=== PATIENT | female | born 1985 | race Two or more races ===

== ENCOUNTER 2019-11-04 12:52 | Emergency (ER) | payer BC ==
--- NOTE | 2019-11-04 13:42 | EDM.PDOC ---
ED HPI GENERAL MEDICAL PROBLEM - General Chief Complaint: Skin Complaint Stated Complaint: CYST UNDER RIGTH BREAST Time Seen by Provider: 11/04/19 12:57 Source of Information: Reports: Patient History Limitations: Reports: No Limitations Departure - Discharge Information Referrals: PCP,None [Primary Care Provider] -
== END 2019-11-04 13:39 | disposition left against medical advice (07) ==
LOC: MW.ED 12:52 → MERGE 12:52 → MW.ED 13:39
DX: Z53.21 Procedure and treatment not carried out due to patient leaving prior to being seen by health care provider (principal)

== ENCOUNTER 2020-10-01 22:02 | Emergency (ER) | payer BC ==
[2020-10-01] MEDS ORDERED: Lactated Ringers 1,000 ML IV ONE (23:08)
[2020-10-01] MEDS ORDERED: Lactated Ringers 1,000 ML IV SCH (23:15)
[2020-10-01 23:21] LABS: ACETAMINOPHEN <2.0 ug/mL; BLOOD UREA NITROGEN,BUN 16 mg/dL (7.0-18.0); CARBON DIOXIDE,CO2 28.5 mmol/L (21.0-32.0); CHLORIDE,CL 101 mmol/L (98-107); GLUCOSE RANDOM 290 mg/dL (74-106); POTASSIUM,K 3.4 mmol/L (3.5-5.1); SODIUM,NA 139 mmol/L (136-145)
--- NOTE | 2020-10-02 01:10 | EDM.PDOC ---
ED HPI GENERAL MEDICAL PROBLEM - General Chief Complaint: Drug or Alcohol Abuse Stated Complaint: POSSIBLE OVERDOSE ON D8 GUMMIES Time Seen by Provider: 10/01/20 22:36 - History of Present Illness INITIAL COMMENTS - FREE TEXT/NARRATIVE: HISTORY AND PHYSICAL: History of present illness: This is a 34-year-old female who presents ER today secondary to ingesting 10 flashers that have 25 mg of delta a THC in them each for a total of 250 mg of delta 8 THC. Patient presents ER today secondary to feeling intoxicated. Patient denies any recent fevers, shakes, chills, nausea, vomiting, diarrhea, dysuria, frequency, urgency, chest pain or shortness of breath no abdominal pain. Patient reports he is tolerating p.o. solids and liquids well. Patient has any homicidal or suicidal ideation. Patient reports that she purchased it secondary to assistance with anxiety. Review of systems: As per history of present illness and below otherwise all systems reviewed and negative. Past medical history: As per history of present illness and as reviewed below otherwise noncontributory. Surgical history: As per history of present illness and as reviewed below otherwise noncontributory. Social history: No reported history of drug abuse. Family history: As per history of present illness and as reviewed below otherwise noncontributory. Physical exam: This patient was seen and evaluated during the 2019 SARS-CoV-2 novel coronavirus pandemic period. Community viral transmission is ongoing at time of this encounter and the emergency department is operating under pandemic response procedures. Constitutional: Patient is oriented to person, place, and time. Appears well- developed and well-nourished. No distress. HEENT: Moist mucous membranes Head: Normocephalic and atraumatic Eyes: Right eye exhibits no discharge. Left eye exhibits no discharge. No scleral icterus Neck: Normal range of motion. No tracheal deviation present. Cardiovascular: Normal rate and regular rhythm. Pulmonary: Effort normal, no respiratory distress. Abdominal: No distention Musculoskeletal: Normal range of motion Neurologic: Alert and oriented to person, place and time. Skin: [place], warm and dry. Psychiatric: Normal mood and affect. Behavior is normal. Judgment and thought content normal. Nursing note and vital signs have been reviewed Patient was reevaluated at 1 AM and she is alert awake and orient x3 and is re questing to be discharged home with her . Diagnostics: Normal CBC, CMP, solicitous, acetaminophen Therapeutics: [] Assessment and plan: Nontoxic ingestion of to delta 8 THC 250 mg. Patient currently is alert awake and orient x3. Patient will be discharged home with instructions not to take 10 delta 8 ever again. Patient is ambulating in the ED with stable gait. Patient's labs are all within normal limits. Definitive disposition and diagnosis as appropriate pending reevaluation and review of above. - Related Data Allergies Allergy/AdvReac Type Severity Reaction Status Date / Time No Known Allergies Allergy Verified 10/01/20 22:14 Home Meds: Home Meds . [No Known Home Meds] 10/01/20 [History] Past Medical History HEENT History: Reports: None Cardiovascular History: Reports: None Respiratory History: Reports: None Gastrointestinal History: Reports: None Genitourinary History: Reports: None LEASING SPECIALIST History: Reports: Dysfunctional Uterine Bleeding Musculoskeletal History: Reports: None Neurological History: Reports: None Psychiatric History: Reports: None Endocrine/Metabolic History: Reports: None Insulin Pump Model and Bag Maker: None Hematologic History: Reports: None Immunologic History: Reports: None Oncologic (Cancer) History: Reports: None Dermatologic History: Reports: None - Infectious Disease History Infectious Disease History: Reports: None - Past Surgical History HEENT Surgical History: Reports: None Social & Family History - Recreational Drug Use Recreational Drug Use: No ED ROS GENERAL - Review of Systems Review Of Systems: See Below ED EXAM, GENERAL - Physical Exam Exam: See Below Course - Vital Signs Last Recorded V/S: Last Vital Signs Temp 96.2 F L 10/01/20 22:05 Pulse 68 10/02/20 00:02 Resp 19 10/02/20 00:02 BP 96/41 L 10/02/20 00:02 Pulse Ox 95 10/02/20 00:02 - Orders/Labs/Meds Orders: Active Orders 24 hr Category Date Time Status ACETAMINOPHEN [CHEM] Stat Lab 10/01/20 22:25 Ordered CBC WITH AUTO DIFF [HEME] Stat Lab 10/01/20 22:25 Ordered COMPREHENSIVE METABOLIC PN,CMP [CHEM] Stat Lab 10/01/20 22:25 Ordered DRUG SCREEN, URINE [URCHEM] Stat Lab 10/01/20 22:25 Ordered ETHANOL BLOOD MEDICAL [CHEM] Stat Lab 10/01/20 22:25 Ordered MAGNESIUM [CHEM] Stat Lab 10/01/20 22:25 Ordered SALICYLATE [CHEM] Stat Lab 10/01/20 22:25 Ordered UA W/MICROSCOPIC [URIN] Stat Lab 10/01/20 22:25 Ordered Lactated Ringers [Ringers, Lactated] 1,000 ml Med 10/01/20 23:08 Ordered IV .BOLUS Lactated Ringers [Ringers, Lactated] 1,000 ml Med 10/01/20 23:15 Ordered IV .BOLUS Labs: Laboratory Tests 10/01/20 10/01/20 10/02/20 Range/Units 10:53 10:53 00:25 WBC 9.21 (4.0-11.0) K/uL RBC 4.29 L (4.30-5.90) M/uL Hgb 13.0 (12.0-16.0) g/dL Hct 36.3 (36.0-46.0) % MCV 84.6 (80.0-98.0) fL MCH 30.3 (27.0-32.0) pg MCHC 35.8 (31.0-37.0) g/dL RDW Std Deviation 40.9 (28.0-62.0) fl RDW Coeff of Shavonne 14 (11.0-15.0) % Plt Count 193 (150-400) K/uL MPV 10.60 (7.40-12.00) fL Neut % (Auto) 51.7 (48.0-80.0) % Lymph % (Auto) 42.0 H (16.0-40.0) % [place] % (Auto) 4.6 (0.0-15.0) % Eos % (Auto) 1.5 (0.0-7.0) % Baso % (Auto) 0.2 (0.0-1.5) % Neut # (Auto) 4.8 (1.4-5.7) K/uL Lymph # (Auto) 3.9 H (0.6-2.4) K/uL [place] # (Auto) 0.4 (0.0-0.8) K/uL Eos # (Auto) 0.1 (0.0-0.7) K/uL Baso # (Auto) 0.0 (0.0-0.1) K/uL Nucleated RBC % 0.0 /100WBC Nucleated RBCs # 0 K/uL Sodium 139 (136-145) mmol/L Potassium 3.4 L (3.5-5.1) mmol/L Chloride 101 (98-107) mmol/L Carbon Dioxide 28.5 (21.0-32.0) mmol/L BUN 16 (7.0-18.0) mg/dL Creatinine 0.8 (0.6-1.0) mg/dL Est Cr Clr Drug Dosing TNP Estimated GFR (MDRD) > 60.0 ml/min Glucose 290 H (74-106) mg/dL Calcium 8.4 L (8.5-10.1) mg/dL Magnesium 1.9 (1.8-2.4) mg/dL Total Bilirubin 0.8 (0.2-1.0) mg/dL AST 30 (15-37) IU/L ALT 59 (14-63) IU/L Alkaline Phosphatase 86 (46-116) U/L Total Protein 6.7 (6.4-8.2) g/dL Albumin 3.6 (3.4-5.0) g/dL Globulin 3.1 (2.6-4.0) g/dL Albumin/Globulin Ratio 1.2 (0.9-1.6) Urine Color YELLOW Urine Appearance SLT CLOUDY Urine pH 5.5 (5.0-8.0) Ur Specific [place] >= 1.030 (1.001-1.035) Urine Protein TRACE H (NEGATIVE) mg/dL Urine Glucose (UA) NEGATIVE (NEGATIVE) mg/dL Urine Ketones NEGATIVE (NEGATIVE) mg/dL Urine Occult Blood NEGATIVE (NEGATIVE) Urine Nitrite NEGATIVE (NEGATIVE) Urine Bilirubin SMALL H (NEGATIVE) Urine Ictotest NEGATIVE Urine Urobilinogen 0.2 (<2.0) EU/dL Ur Leukocyte Esterase NEGATIVE (NEGATIVE) U Hyaline Cast (Auto) FEW (0-2/LPF) Urine RBC 0-2 (0-2/HPF) Urine WBC 0-2 (0-5/HPF) Ur Epithelial Cells MODERATE (NONE-FEW) Calcium Oxalate Crystal MODERATE (NEGATIVE) Urine Bacteria FEW (NEGATIVE) Salicylates 1.7 (0-20) mg/dL Urine Opiates Screen (NEGATIVE) Ur Oxycodone Screen (NEGATIVE) Urine Methadone Screen (NEGATIVE) Acetaminophen <2.0 ug/mL Ur Barbiturates Screen (NEGATIVE) Ur Phencyclidine Scrn (NEGATIVE) Ur Amphetamine Screen (NEGATIVE) U Methamphetamines Scrn (NEGATIVE) U Benzodiazepines Scrn (NEGATIVE) U Cocaine Metab Screen (NEGATIVE) U Marijuana (THC) Screen (NEGATIVE) Ethyl Alcohol < 3.0 mg/dL 10/02/20 Range/Units 00:25 WBC (4.0-11.0) K/uL RBC (4.30-5.90) M/uL Hgb (12.0-16.0) g/dL Hct (36.0-46.0) % MCV (80.0-98.0) fL MCH (27.0-32.0) pg MCHC (31.0-37.0) g/dL RDW Std Deviation (28.0-62.0) fl RDW Coeff of [place] (11.0-15.0) % Plt Count (150-400) K/uL MPV (7.40-12.00) fL Neut % (Auto) (48.0-80.0) % Lymph % (Auto) (16.0-40.0) % [place] % (Auto) (0.0-15.0) % Eos % (Auto) (0.0-7.0) % Baso % (Auto) (0.0-1.5) % Neut # (Auto) (1.4-5.7) K/uL Lymph # (Auto) (0.6-2.4) K/uL [place] # (Auto) (0.0-0.8) K/uL Eos # (Auto) (0.0-0.7) K/uL Baso # (Auto) (0.0-0.1) K/uL Nucleated RBC % /100WBC Nucleated RBCs # K/uL Sodium (136-145) mmol/L Potassium (3.5-5.1) mmol/L Chloride (98-107) mmol/L Carbon Dioxide (21.0-32.0) mmol/L BUN (7.0-18.0) mg/dL Creatinine (0.6-1.0) mg/dL Est Cr Clr Drug Dosing Estimated GFR (MDRD) ml/min Glucose (74-106) mg/dL Calcium (8.5-10.1) mg/dL Magnesium (1.8-2.4) mg/dL Total Bilirubin (0.2-1.0) mg/dL AST (15-37) IU/L ALT (14-63) IU/L Alkaline Phosphatase (46-116) U/L Total Protein (6.4-8.2) g/dL Albumin (3.4-5.0) g/dL Globulin (2.6-4.0) g/dL Albumin/Globulin Ratio (0.9-1.6) Urine Color Urine Appearance Urine pH (5.0-8.0) Ur Specific [place] (1.001-1.035) Urine Protein (NEGATIVE) mg/dL Urine Glucose (UA) (NEGATIVE) mg/dL Urine Ketones (NEGATIVE) mg/dL Urine Occult Blood (NEGATIVE) Urine Nitrite (NEGATIVE) Urine Bilirubin (NEGATIVE) Urine Ictotest Urine Urobilinogen (<2.0) EU/dL Ur Leukocyte Esterase (NEGATIVE) U Hyaline Cast (Auto) (0-2/LPF) Urine RBC (0-2/HPF) Urine WBC (0-5/HPF) Ur Epithelial Cells (NONE-FEW) Calcium Oxalate Crystal (NEGATIVE) Urine Bacteria (NEGATIVE) Salicylates (0-20) mg/dL Urine Opiates Screen NEGATIVE (NEGATIVE) Ur Oxycodone Screen NEGATIVE (NEGATIVE) Urine Methadone Screen NEGATIVE (NEGATIVE) Acetaminophen ug/mL Ur Barbiturates Screen NEGATIVE (NEGATIVE) Ur Phencyclidine Scrn NEGATIVE (NEGATIVE) Ur Amphetamine Screen NEGATIVE (NEGATIVE) U Methamphetamines Scrn NEGATIVE (NEGATIVE) U Benzodiazepines Scrn NEGATIVE (NEGATIVE) U Cocaine Metab Screen NEGATIVE (NEGATIVE) U Marijuana (THC) Screen POSITIVE (NEGATIVE) Ethyl Alcohol mg/dL Departure - Departure Time of Disposition: 01:10 Disposition: Home, Self-Care 01 Condition: Good 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 This is a substance that is extremely similar to THC/marijuana. Please do not take them any tablets anymore as this will give you the same sensation that you are having. The following information is given to patients seen in the emergency department who are being discharged to home. This information is to outline your options for follow-up care. We provide all patients seen in our emergency department with a follow-up referral. The need for follow-up, as well as the timing and circumstances, are variable depending upon the specifics of your emergency department visit. If you don't have a primary care physician on staff, we will provide you with a referral. We always advise you to contact your personal physician following an emergency department visit to inform them of the circumstance of the visit and for follow-up with them and/or the need for any referrals to a consulting specialist. The emergency department will also refer you to a specialist when appropriate. This referral assures that you have the opportunity for follow-up care with a specialist. All of these measure are taken in an effort to provide you with optimal care, which includes your follow-up. Under all circumstances we always encourage you to contact your private physician who remains a resource for coordinating your care. When calling for follow-up care, please make the office aware that this follow-up is from your recent emergency room visit. If for any reason you are refused follow-up, please contact the Emergency Department at and asked to speak to the emergency department charge nurse. [facility] - Primary Care [address] [place] [address] [place] [address] Sepsis Event Note (ED) - Evaluation Sepsis Screening Result: No Definite Risk - Focused Exam Vital Signs: Vital Signs Temp Pulse Resp BP Pulse Ox 10/02/20 00:02 68 19 96/41 L 95 10/01/20 23:23 69 17 93/44 L 97 10/01/20 23:05 70 18 83/41 L 94 L 10/01/20 22:47 72 19 88/43 L 94 L 10/01/20 22:05 96.2 F L 81 16 104/51 L 95 - My Orders Last 24 Hours: My Active Orders 10/01/20 22:25 ACETAMINOPHEN [CHEM] Stat CBC WITH AUTO DIFF [HEME] Stat COMPREHENSIVE METABOLIC PN,CMP [CHEM] Stat DRUG SCREEN, URINE [URCHEM] Stat ETHANOL BLOOD MEDICAL [CHEM] Stat MAGNESIUM [CHEM] Stat SALICYLATE [CHEM] Stat UA W/MICROSCOPIC [URIN] Stat 10/01/20 23:08 Lactated Ringers [Ringers, Lactated] 1,000 ml IV .BOLUS 10/01/20 23:15 Lactated Ringers [Ringers, Lactated] 1,000 ml IV .BOLUS - Assessment/Plan Last 24 Hours: My Active Orders 10/01/20 22:25 ACETAMINOPHEN [CHEM] Stat CBC WITH AUTO DIFF [HEME] Stat COMPREHENSIVE METABOLIC PN,CMP [CHEM] Stat DRUG SCREEN, URINE [URCHEM] Stat ETHANOL BLOOD MEDICAL [CHEM] Stat MAGNESIUM [CHEM] Stat SALICYLATE [CHEM] Stat UA W/MICROSCOPIC [URIN] Stat 10/01/20 23:08 Lactated Ringers [Ringers, Lactated] 1,000 ml IV .BOLUS 10/01/20 23:15 Lactated Ringers [Ringers, Lactated] 1,000 ml IV .BOLUS
== END 2020-10-02 01:31 | disposition home or self-care (01) ==
LOC: MW.ED 22:02
DX: T50.991A Poisoning by other drugs, medicaments and biological substances, accidental (unintentional), initial encounter (principal); F41.9 Anxiety disorder, unspecified; T40.7X5A Adverse effect of cannabis (derivatives), initial encounter
CPT/HCPCS: 36415; 80053; 80143; 80179; 80305; 80307; 81001; 83735; 85025; 99284; J7120

== ENCOUNTER 2020-10-27 09:45 | Emergency (ER) | payer BC ==
[2020-10-27] MEDS ORDERED: Dextrose 5%-Lactated Ringers 1,000 ML IV SCH (10:30)
--- NOTE | 2020-10-27 11:02 | EDM.PDOC ---
ED HPI GENERAL MEDICAL PROBLEM - General Chief Complaint: Neuro Symptoms/Deficits Stated Complaint: POSSIBLE STROKE/ BLURRED VISION, HEADACHE Time Seen by Provider: 10/27/20 10:01 - History of Present Illness INITIAL COMMENTS - FREE TEXT/NARRATIVE: CHIEF COMPLAINT(S): Headache HISTORY OF PRESENT ILLNESS: This is a 34-year-old woman with a past medical history of migraine headache who comes to the emergency department with a chief complaint of headache. The patient states that she was at her follow-up appointment with her pain management physician this morning when they took her blood pressure and they told her it was elevated and they sent her to the walk- in clinic. She states that the walk-in clinic heard her chief complaint and they sent her immediately to the emergency department. She states that for the past 2 days she has been experiencing a headache which she describes as 8 out of 10 currently. She states that the pain was worse at onset and has continued to be the same. She states it started bad and stayed bad. She states that she does have some intermittent blurry vision but denies any loss of vision, trouble walking, speaking or swallowing. She states that the headache is normally either in the front or back however this 1 started in the back of her head and radiated forward and she is experiencing bilateral sharp headache along her temples. She states that she tried ibuprofen yesterday which did not work and then she tried Excedrin this morning which did not work. She denies any IV drug use, neck pain or stiffness. She denies any history of brain aneurysm or family history of brain aneurysm. She states this headache feels completely different than her prior headaches. She states that she does have some vision loss in her left eye that has been progressively worsening for the last 3 years. REVIEW OF SYSTEMS: Constitutional: Denies fever, chills. Eyes: Denies eye pain Ears, Nose, Mouth, & Throat: Denies earache Cardiovascular: Denies chest pain Respiratory: Denies shortness of breath Gastrointestinal: Denies Nausea, vomiting, diarrhea, hematochezia. Genitourinary: Denies hematuria Skin:Denies a rash MSK: Denies joint pain Neurological: Positive for sudden onset severe headache associated with intermittent blurry vision. Denies numbness, tingling, weakness Psychiatric: Denies depression PAST MEDICAL HISTORY: As per history of present illness and as reviewed below otherwise noncontributory. SURGICAL HISTORY: As per history of present illness and as reviewed below otherwise noncontributory. SOCIAL HISTORY: As per history of present illness and as reviewed below otherwise noncontributory. FAMILY HISTORY: As per history of present illness and as reviewed below otherwise noncontributory. EXAMINATION OF ORGAN SYSTEMS/BODY AREAS: Constitutional: Blood pressure is 133/84, heart rate 71, respiratory rate 18 with an oxygen saturation a 96% on room air. Temperature 35.9 General: Well-appearing woman who is in no acute distress Psychiatric: Appropriate mood and affect. Eyes: No scleral icterus or conjunctival erythema pupils were 3 mm and reactive bilaterally. Extraocular movements intact. No vertical or horizontal nystagmus. Left sided peripheral visual field loss ENMT: Moist mucous membranes. No pharyngeal erythema Cardiovascular: Regular, rate, and rhythm. No gallops, murmurs, or rubs. Bilateral upper extremity pulses symmetric and intact. No peripheral edema. No JVD. Respiratory: Lungs clear to auscultation bilaterally. No wheezes, rales, or rhonchi. Gastrointestinal: Soft, non-tender, non-distended. Normoactive bowel sounds Genitourinary: No suprapubic tenderness Musculoskeletal: Normal range of motion. NO neck pain or stiffness. No meningeal signs Skin: No lesions or abrasions. Neurological: AOx4. Strength 5/5 in bilateral upper and lower extremity. Sensation is intact bilaterally in upper and lower extremity. Gait appears normal. Finger to nose, heel to pablo, rapid alternating movements intact. MEDICAL DECISION MAKING AND COURSE IN THE ED WITH INTERPRETATION/REVIEW OF DIAGNOSTIC STUDIES: This is a 33-year-old woman with a past medical history of prior migraine headache who comes to the emergency department with sudden onset severe headache which is different from her prior associated with intermittent blurry vision. Given the pain that was maximal at onset differential does include subarachnoid hemorrhage. I did discuss her at this time that given that the headache started approximately [address] head without contrast does not useful in this case for intracranial hemorrhage. I did offer the patient a lumbar puncture versus CT head without and CTA of the head and neck. I did discuss the risks and benefits of each and the patient elected for CTA at this time. Therefore will obtain CT head without contrast and CTA of the head and neck. Will obtain BMP and urine test. Will hold off on any medication administration at this time until her imaging has been completed. We will provide the patient with D5 LR bolus. The patient is not complaining of any nausea currently therefore no antinausea medication will be provided. Laboratory: BMP reveals hyponatremia at 133, elevated glucose at 360. hCG is negative. [id number] glucose was 360. The radiological images were viewed by myself along with reading the report from the radiologist. CT head without contrast does not reveal any acute intracranial abnormality. CTA of the head and neck reveals no intracranial proximal vessel occlusion or flow-limiting luminal stenosis or cerebral aneurysm. There is stenosis of the bilateral transverse sinuses and expanded sella's findings are suggestive of underlying idiopathic intracranial hypertension. Given the suggestion of idiopathic intracranial hypertension and the left-sided vision loss I did discuss with patient that I would like to speak to a neurologist. I contacted [facility] in [place] and spoke with Dr. Merino who recommended a lumbar puncture to evaluate for opening pressure and to start the patient on acetazolamide and discussed with her about weight loss, decreased liquid intake and salt intake. He states that we needed to evaluate for dural venous thrombosis however this may be difficult given the CTAs. He states that he recommends a follow-up appointment with neuro-ophthalmology which is in [place]. I contacted the radiology department and at this time they were able to evaluate with the CTAs and there was no evidence of dural venous thrombosis. I did discuss obtaining a lumbar puncture with the patient. She was amenable to this plan. Consent was placed in chart. Procedure note [place] precautions were taken. The area was prepped with povidone and the skin was locally anesthetized with 1% lidocaine. A spinal needle with stylette was inserted between the L4 and L5 spinous processes. CSF was obtained and sent to the lab. Opening pressure was 26mmhg. approximately 7 cc of cerebrospinal fluid was removed. The patient is instructed to remain in the supine position in the emergency department for the next hour After completing lumbar puncture I did contact [facility] and was able to speak with the neuro-studio associate clinic for Dr. Stephenson and they recommended faxing all of her information and they will contact the patient for a follow-up appointment. Consent for medical records release was obtained from the patient and the records were sent. At this time given the LP I did discuss with patient that she should continue with fluid hydration and discussed with her treatment for idiopathic intracranial hypertension and gave her a informational sheet on this. She is to take acetazolamide daily and to use Tylenol and Motrin for pain relief. After multiple fluid boluses the patient's glucose did go down to 223. At this time we will start the patient on Metformin 500 mg and sent a prescription. She is to follow-up with primary care for new onset diabetes and diabetic control. I discussed if she had any worsening symptoms such as worsening vision loss, headache I would like her to return to the emergency department. She was amenable discharge at this time and had no further questions. DISPOSITION: The patient was discharged home in stable condition. The patient will follow up with neuro-ophthalmology in [place] CONDITION: Fair PROCEDURES: Lumbar puncture FINAL IMPRESSION(S)/DIAGNOSES: 1. Acute on chronic headache likely secondary to idiopathic intracranial hypertension 2. Chronic left sided visual field loss likely secondary to untreated idiopathic intracranial hypertension. 3. Hyperglycemia, likely new onset diabetes. Critical Care Procedure Note Authorized and performed by: Michael Meneses M.D. Critical Care Time: 50 minutes Due to a high probability of clinically significant, life threatening deterioration, the patient required my highest level of preparedness to intervene emergently and I personally spent this critical care time directly and personally managing the patient. This critical care time included obtaining a history, examining the patient, pulse oximetry; ordering and review of studies; arranging urgent treatment with development of a management plan; evaluation of a patients reponse to treatment; frequent assessment; and discussions with other providers. This critical care time was performed to assess and manage the high probability of imminent, life threatening deterioration that could result in multiorgan failure. It was exclusive of separate billable procedures and treating other patients. Please see MDM section and rest of the note for further information on patient assessment and treatment. Please see MDM section and rest of the note for further information on patient assessment and treatment. Michael Meneses M.D. headache Pain Score (Numeric/FACES): 8 - Related Data Allergies Allergy/AdvReac Type Severity Reaction Status Date / Time No Known Allergies Allergy Verified 10/27/20 10:04 Home Meds: Home Meds acetaZOLAMIDE [Acetazolamide] 250 mg PO QID #30 tablet 10/27/20 [Rx] metFORMIN [Glucophage XR] 500 mg PO BIDMEALS #60 tab.er 10/27/20 [Rx] Past Medical History HEENT History: Reports: None Cardiovascular History: Reports: None Respiratory History: Reports: None Gastrointestinal History: Reports: None Genitourinary History: Reports: None FIELD STAFF History: Reports: Dysfunctional Uterine Bleeding Musculoskeletal History: Reports: None Neurological History: Reports: None Psychiatric History: Reports: Anxiety Endocrine/Metabolic History: Reports: None Insulin Pump Model and Radiation Physicist: None Hematologic History: Reports: None Immunologic History: Reports: None Oncologic (Cancer) History: Reports: None Dermatologic History: Reports: None - Infectious Disease History Infectious Disease History: Reports: Chicken Pox, Shingles - Past Surgical History HEENT Surgical History: Reports: None Cardiovascular Surgical History: Reports: None Respiratory Surgical History: Reports: None Endocrine Surgical History: Reports: None Neurological Surgical History: Reports: None Musculoskeletal Surgical History: Reports: None Dermatological Surgical History: Reports: None Social & Family History - Family History Family Medical History: No Pertinent Family History - Tobacco Use Tobacco Use Status *Q: Current Every Day Tobacco User Years of Tobacco use: 19 Packs/Tins Daily: 0.5 - Recreational Drug Use Recreational Drug Use: Yes Recreational Drug Type: Reports: Marijuana/Hashish Recreational Drug Use Frequency: Monthly ED ROS GENERAL - Review of Systems Review Of Systems: See Below ED EXAM, NEURO - Physical Exam Exam: See Below Course - Vital Signs Last Recorded V/S: Last Vital Signs Temp 36.9 C 10/27/20 16:12 Pulse 68 10/27/20 16:51 Resp 18 10/27/20 16:51 BP 121/74 10/27/20 16:51 Pulse Ox 97 10/27/20 16:51 - Orders/Labs/Meds Orders: Active Orders 24 hr Category Date Time Status Blood Glucose Check, Bedside [RC] ONETIME Care 10/27/20 11:43 Active Dextrose 5%-Lactated Ringers 1,000 ml Med 10/27/20 10:30 Active IV ASDIRECTED Lactated Ringers [Ringers, Lactated] 1,000 ml Med 10/27/20 12:00 Active IV ASDIRECTED Lactated Ringers [Ringers, Lactated] 1,000 ml Med 10/27/20 12:00 Active IV ASDIRECTED Medication Orders Dextrose/Lactated Ringer's (Dextrose 5%-Lactated Ringers) 1,000 mls @ 999 mls/hr IV ASDIRECTED STEVE Last Admin: 10/27/20 10:53 Dose: 999 mls/hr Documented by: BENJI Lactated Ringer's (Ringers, Lactated) 1,000 mls @ 999 mls/hr IV ASDIRECTED STEVE Last Admin: 10/27/20 12:12 Dose: 999 mls/hr Documented by: BENJI Lactated Ringer's (Ringers, Lactated) 1,000 mls @ 999 mls/hr IV ASDIRECTED STEVE Last Admin: 10/27/20 12:12 Dose: 999 mls/hr Documented by: BENJI Labs: Laboratory Tests 10/27/20 10/27/20 10/27/20 Range/Units 10:40 10:40 11:46 Sodium 133 L (136-145) mmol/L Potassium 4.1 (3.5-5.1) mmol/L Chloride 99 (98-107) mmol/L Carbon Dioxide 25.3 (21.0-32.0) mmol/L BUN 7 (7.0-18.0) mg/dL Creatinine 0.5 L (0.6-1.0) mg/dL Est Cr Clr Drug Dosing 126.57 mL/min Estimated GFR (MDRD) > 60.0 ml/min Glucose 360 H (74-106) mg/dL POC Glucose 340 H (70-99) mg/dL Calcium 8.5 (8.5-10.1) mg/dL HCG, Qual NEGATIVE (NEG) Meds: Medications Generic Name Dose Route Start Last Admin Trade Name Freq PRN Reason Stop Dose Admin Dextrose/Lactated Ringer's 1,000 mls @ 999 mls/hr 10/27/20 10:30 10/27/20 10:53 Dextrose 5%-Lactated Ringers IV 999 mls/hr ASDIRECTED STEVE Administration Lactated Ringer's 1,000 mls @ 999 mls/hr 10/27/20 12:00 10/27/20 12:12 Ringers, Lactated IV 999 mls/hr ASDIRECTED STEVE Administration Lactated Ringer's 1,000 mls @ 999 mls/hr 10/27/20 12:00 10/27/20 12:12 Ringers, Lactated IV 999 mls/hr ASDIRECTED STEVE Administration Discontinued Medications Generic Name Dose Route Start Last Admin Trade Name Freq PRN Reason Stop Dose Admin Iopamidol 100 ml 10/27/20 13:56 08/16/21 13:57 Iopamidol 755 Mg/Ml 500 Ml Multipack Bottle IVPUSH 10/27/20 13:57 100 ml ONETIME STA Administration Departure - Departure Time of Disposition: 16:44 Disposition: Home, Self-Care 01 Condition: Fair Clinical Impression: Idiopathic intracranial hypertension, Vision loss of left eye, Diabetes - Discharge Information *PRESCRIPTION DRUG MONITORING PROGRAM REVIEWED*: No *COPY OF PRESCRIPTION DRUG MONITORING REPORT IN PATIENT SANTANA: No Prescriptions: acetaZOLAMIDE [Acetazolamide] 250 mg PO QID #30 tablet metFORMIN [Glucophage XR] 500 mg PO BIDMEALS #60 tab.er Instructions: Idiopathic Intracranial Hypertension, Type 2 Diabetes Mellitus, Diagnosis, Adult, [id number], Lumbar Puncture, Care After Referrals: PCP,None [Primary Care Provider] - Forms: ED Department Discharge Additional Instructions: You were evaluated today on an emergent basis. At this time we did diagnose you with idiopathic intracranial hypertension. I do believe this is a reason for your headaches and your left-sided visual field loss. In discussion with neurology at [facility] in [place] they did recommend a lumbar puncture. Our lumbar picture confirmed our suspicion as your pressure was elevated at 26. We did remove some fluid. Post LP you may have a continued headache therefore I recommend you continue with some fluid hydration. Overall treatment for idiopathic intracranial hypertension is weight loss, decrease salt intake, only drink normal amounts of fluids, and take acetazolamide daily. In addition your glucose was really high suggesting diabetes mellitus. We did start you on Metformin which needs to be taken twice a day and you need to follow-up with your primary care physician for further monitoring and treatment of this condition. Metformin side effect is mainly GI upset therefore we do recommend that you take this with meals. If you have any worsening symptoms I would like you to return to the emergency department. Otherwise please follow-up with neuro-ophthalmology for which they will contact you and primary care physician in 3 to 5 days. Please use: Tylenol 500-1000mg every 6 hours (DO NOT TAKE MORE THAN 4000mg in 1 day) Ibuprofen 400mg every 6 hours (Take with food as it can cause ulcers, GI upset) Example schedule: 8:00 AM (Tylenol 500-1000mg) 11:00 AM (Ibuprofen 400mg) 2:00 PM (Tylenol 500-1000mg) 5:00 PM (Ibuprofen 400mg) [facility] [address] [place] [address] [facility] [address] [place] [address] Dr. Stephenson Neuro-opthalomologist [address] [place] [id number] The patient is informed of any results of their evaluation and diagnostic workup and all questions are answered. They are given discharge instructions and return precautions. The patient is stable for discharge. The patient states they understand and agree with the plan and that they will return if their symptoms get worse or if they have any new concerns. The following information is given to patients seen in the emergency department who are being discharged to home. This information is to outline your options for follow-up care. We provide all patients seen in our emergency department with a follow-up referral. The need for follow-up, as well as the timing and circumstances, are variable depending upon the specifics of your emergency department visit. If you don't have a primary care physician on staff, we will provide you with a referral. We always advise you to contact your personal physician following an emergency department visit to inform them of the circumstance of the visit and for follow-up with them and/or the need for any referrals to a consulting specialist. The emergency department will also refer you to a specialist when appropriate. This referral assures that you have the opportunity for follow-up care with a specialist. All of these measure are taken in an effort to provide you with optimal care, which includes your follow-up. Under all circumstances we always encourage you to contact your private physician who remains a resource for coordinating your care. When calling for follow-up care, please make the office aware that this follow-up is from your recent emergency room visit. If for any reason you are refused follow-up, please contact the [facility] Emergency Department at and asked to speak to the emergency department charge nurse. Sepsis Event Note (ED) - Focused Exam Vital Signs: Vital Signs Temp Pulse Resp BP Pulse Ox 10/27/20 16:51 68 18 121/74 97 10/27/20 16:12 36.9 C 70 18 131/82 98 10/27/20 15:16 64 18 157/81 H 97 10/27/20 15:00 72 18 166/84 H 97 10/27/20 13:51 36.7 C 84 18 131/91 H 97 10/27/20 13:05 37.8 C 61 16 135/93 H 98 10/27/20 10:01 35.9 C L 71 18 133/84 96 - My Orders Last 24 Hours: My Active Orders 10/27/20 10:30 Dextrose 5%-Lactated Ringers 1,000 ml IV ASDIRECTED 10/27/20 11:43 Blood Glucose Check, Bedside [RC] ONETIME 10/27/20 12:00 Lactated Ringers [Ringers, Lactated] 1,000 ml IV ASDIRECTED Lactated Ringers [Ringers, Lactated] 1,000 ml IV ASDIRECTED - Assessment/Plan Last 24 Hours: My Active Orders 10/27/20 10:30 Dextrose 5%-Lactated Ringers 1,000 ml IV ASDIRECTED 10/27/20 11:43 Blood Glucose Check, Bedside [RC] ONETIME 10/27/20 12:00 Lactated Ringers [Ringers, Lactated] 1,000 ml IV ASDIRECTED Lactated Ringers [Ringers, Lactated] 1,000 ml IV ASDIRECTED
[2020-10-27 11:19] LABS: BLOOD UREA NITROGEN,BUN 7 mg/dL (7.0-18.0); CARBON DIOXIDE,CO2 25.3 mmol/L (21.0-32.0); CHLORIDE,CL 99 mmol/L (98-107); GLUCOSE RANDOM 360 mg/dL (74-106); POTASSIUM,K 4.1 mmol/L (3.5-5.1); SODIUM,NA 133 mmol/L (136-145)
--- NOTE | 2020-10-27 11:34 | CT ---
DATE: 10/27/2020. CLINICAL HISTORY: Patient with sudden onset severe headache. TECHNIQUE: Standard helical CT image acquisition of the brain following by standard helical CT image acquisition through the neck after intravenous contrast bolus enhancement. Multiplanar reconstructed images performed on a separate workstation. COMPARISON: None available. FINDINGS: CT HEAD: There is no intracranial hemorrhage. No extra-axial collection, mass effect, or midline shift. Live-white matter differentiation is preserved. Ventricles are normal in size and morphology for patient age. The calvarium is unremarkable. The orbits are unremarkable. Incidental note is made of left gaze deviation. Near-complete opacification of the bilateral anterior and posterior ethmoid air cells and left sphenoid sinus mucosal thickening and layering secretions within the right maxillary and right sphenoid sinuses, and mucosal thickening the left maxillary sinus. The mastoid air cells are unremarkable. The soft tissues are unremarkable. CTA NECK: The origins of the great vessels from the aortic arch are patent. The origins of the right and left vertebral arteries are patent. The common carotid arteries are patent. No significant stenoses at the origins of the proximal internal carotid arteries by NASCET criteria. The more distal cervical segments of the internal carotid arteries are patent. The cervical segments of the vertebral arteries are patent. The visualized lung apices are unremarkable. The thyroid gland is unremarkable. The cervical spine is unremarkable. IMPRESSION: 1. No CT evidence of acute intracranial abnormality. 2. Patent cervical arterial vasculature with no hemodynamically significant luminal stenosis. 3. Paranasal sinus disease, as above. Please note that all CT scans at this facility use dose modulation, iterative reconstruction, and/or weight-based dosing when appropriate to reduce radiation dose to as low as reasonably achievable. Dictated by Vadim Galarza MD @ 10/27/2020 11:33:[address] Vadim Galarza @ Oct 27 2020 11:33AM
[2020-10-27] MEDS ORDERED: Lactated Ringers 1,000 ML IV SCH ×2 (12:00)
--- NOTE | 2020-10-27 12:08 | CT ---
DATE: 10/27/2020. CLINICAL HISTORY: Patient with sudden onset severe headache. TECHNIQUE: Standard helical CT image acquisition through the head was performed after intravenous contrast bolus enhancement. Multiplanar reconstructed images were performed and interpreted. COMPARISON: None available. FINDINGS: The petrous, cavernous, and supraclinoid segments of the bilateral internal carotid arteries are within limits. The anterior and middle cerebral arteries are within limits. The anterior communicating artery is visualized and within normal limits. The intracranial vertebral arteries, basilar artery, posterior cerebral arteries are within normal limits. Note is made of stenoses of the bilateral transverse sinuses. In addition, there is an expanded sella. These findings can be seen in the setting of underlying idiopathic intracranial hypertension. IMPRESSION: 1. No intracranial proximal large vessel occlusion, flow-limiting luminal stenosis, for cerebral aneurysm. 2. Stenoses of the bilateral transverse sinuses and expanded sella, findings of which are suggestive of underlying idiopathic intracranial hypertension. If there are additional clinical symptoms concerning for idiopathic intracranial hypertension, such as blurry vision/papilledema or pulsatile tinnitus, a lumbar puncture with opening pressure should be considered. If there is a diagnosis of idiopathic intracranial hypertension, consultation with our Neurointerventional service at [facility], to discuss venous manometry and venography with the potential for venous sinus stenting, can be arranged by calling [phone] 2 schedule a telehealth appointment. Please note that all CT scans at this facility use dose modulation, iterative reconstruction, and/or weight-based dosing when appropriate to reduce radiation dose to as low as reasonably achievable. Dictated by Vadim Galarza MD @ 10/27/2020 12:06:[address] Vadim Galarza @ Oct 27 2020 12:06PM
[2020-10-27] MEDS ORDERED: Iopamidol 755 MG/ML 500 ML Multipack Bottle IVPUSH STA (13:56)
== END 2020-10-27 17:17 | disposition home or self-care (01) ==
LOC: MW.ED 09:45
DX: R51.9 Headache, unspecified (principal); H53.8 Other visual disturbances; I10 Essential (primary) hypertension; E11.65 Type 2 diabetes mellitus with hyperglycemia; Z72.0 Tobacco use; Z79.84 Long term (current) use of oral hypoglycemic drugs
CPT/HCPCS: 62270; 70450; 70496; 70498; 80048; 82947; 84703; 99285; J7120; J7121; Q9967

== ENCOUNTER 2022-08-16 12:25 | Emergency (ER) | payer OTHER, BC ==
[2022-08-16] MEDS ORDERED: traMADol 50 MG Tab PO ONE (13:36)
== END 2022-08-16 15:20 | disposition home or self-care (01) ==
LOC: MW.ED 12:25
DX: S63.501A Unspecified sprain of right wrist, initial encounter (principal); F17.210 Nicotine dependence, cigarettes, uncomplicated; W23.0XXA Caught, crushed, jammed, or pinched between moving objects, initial encounter; Y92.89 Other specified places as the place of occurrence of the external cause; Y99.0 Civilian activity done for income or pay
CPT/HCPCS: 73110; 73130; 99283; A9270

== ENCOUNTER 2024-04-13 12:16 | Emergency (ER) | payer BC ==
[2024-04-13] MEDS: Acetaminophen 500 MG Tab PO ONE (13:18)
== END 2024-04-13 14:16 | disposition home or self-care (01) ==
LOC: MW.ED 12:16
DX: S09.90XA Unspecified injury of head, initial encounter (principal); J32.9 Chronic sinusitis, unspecified; W10.9XXA Fall (on) (from) unspecified stairs and steps, initial encounter; Y93.89 Activity, other specified; Z75.8 Other problems related to medical facilities and other health care
CPT/HCPCS: 70450; 72125; 99284; A9270; 99283